=== PATIENT | male | born 1945 | race Two or more races ===

== ENCOUNTER 2023-02-19 07:05 | Day surgery (SDC) | payer BC, MEDICARE ==
[~2023-02-19] VITALS: Ht 167.6 cm; Wt 90.9 kg
[2023-02-19] MEDS ORDERED: VANCOMYCIN 1GM/250ML 250 ML IV ONE (08:15)
[2023-02-19] MEDS ORDERED: NEBI10TA12 PO (08:28)
[2023-02-19] MEDS ORDERED: TERA10CA36 PO (08:28)
[2023-02-19] MEDS ORDERED: ASPI-764 PO (08:28)
[2023-02-19] MEDS ORDERED: AZIL40TA2 PO (08:28)
[2023-02-19] MEDS ORDERED: ATO40T PO (08:28)
[2023-02-19] MEDS ORDERED: LIDOCAINE 2%HCL (LOCAL ANESTH.) INJ 20ML MDV ONE (09:11)
[2023-02-19] MEDS ORDERED: fentaNYL CITRATE 100 MCG/2 ML VL ONE (09:19)
[2023-02-19] MEDS ORDERED: MIDAZOLAM HCL 2MG/2ML 2ml VIAL (1mg/ml) ONE (09:19)
[2023-02-19] MEDS ORDERED: VANCOMYCIN HCL 1000 MG VL ONE (09:25)
[2023-02-19] MEDS ORDERED: HYDROmorphone HCL 2 MG/ML VL/or syr ONE (09:28)
[2023-02-19] MEDS ORDERED: ceFAZolin 1GM VL ONE (10:08)
[2023-02-19] MEDS ORDERED: CEPH500C PO (11:15)
== END 2023-02-19 11:52 | disposition home or self-care (01) ==
LOC: CATH 07:05
PROVIDERS: ATTEND Internal Medicine Cardiovascular Disease
DX: I44.2 Atrioventricular block, complete (principal); I10 Essential (primary) hypertension; G47.30 Sleep apnea, unspecified; I25.2 Old myocardial infarction; Z95.0 Presence of cardiac pacemaker; Z79.82 Long term (current) use of aspirin; Z79.899 Other long term (current) drug therapy; Z98.890 Other specified postprocedural states
CPT/HCPCS: 33228; 93005; C1785; J0690; J1170; J2250; J3010; J3370; J7030; 33208; 99152; 99153